=== PATIENT | male | born 1960 | race Two or more races ===

== ENCOUNTER 2019-12-15 16:50 | Emergency (ER) | payer OTHER ==
[~2019-12-15] VITALS: Ht 167.6 cm; Wt 85.0 kg
[2019-12-15] MEDS ORDERED: PIPERACILLIN/TAZ 3.375G PREMIX 50 ML IV ONE (19:45)
[2019-12-15] MEDS ORDERED: VANCOMYCIN 1 G PREMIX 200 ML IV ONE (19:45)
[2019-12-15] MEDS ORDERED: HYDROCODONE/ACETAMINOPHEN 5/325MG TABLET PO ONE (20:15)
[2019-12-15 20:23] LABS: CHLORIDE 103 mEq/L (98-107)
[2019-12-15 20:25] LABS: BASOPHILS % 0.3 % (0.0-2.0); EOSINOPHILS % 2.4 % (0.0-5.0); HEMOGLOBIN. 12.1 g/dL (14.0-18.0); LYMPHOCYTES % 23.3 % (20.0-50.0); MEAN CORPUSCULAR VOLUME 87.5 fL (80.0-94.0); MONOCYTES % 6.4 % (2.0-8.0); NEUTROPHILS % 67.6 % (40.0-76.0); PLATELET 158 x1000/uL (130-400); RED BLOOD CELL COUNT 3.89 mill/uL (4.7-6.1); RED CELL DISTRIBUTION WIDTH 12.6 % (11.6-14.6)
[2019-12-15 20:28] LABS: C REACTIVE PROTEIN QUANT 2.2 mg/L (0.0-3.0)
[2019-12-15 20:30] LABS: PROTHROMBIN TIME 10.4 sec (9.6-11.0)
[2019-12-16 00:30] VITALS: BP 131/71
== END 2019-12-16 01:21 | disposition short-term general hospital (02) ==
LOC: ER 16:50 → ENRESERV 21:05 → CANRESERV 21:05 → ER 12-16 01:21 → CANBEDREQ 12-16 01:33 → SUPCPDRO 12-16 10:44
DX: H05.02 Osteomyelitis of orbit (principal); E11.65 Type 2 diabetes mellitus with hyperglycemia; E11.621 Type 2 diabetes mellitus with foot ulcer; L97.519 Non-pressure chronic ulcer of other part of right foot with unspecified severity; E11.22 Type 2 diabetes mellitus with diabetic chronic kidney disease; I13.10 Hypertensive heart and chronic kidney disease without heart failure, with stage 1 through stage 4 chronic kidney disease, or unspecified chronic kidney disease; N18.9 Chronic kidney disease, unspecified; Z95.0 Presence of cardiac pacemaker
CPT/HCPCS: 36415; 73660; 80053; 82962; 83605; 84145; 85025; 85610; 85651; 86140; 87040; 93005; 93923; 96365; 96367; 99285; J2543; J3370